=== PATIENT | female | born 1960 | race Caucasian/White ===

== ENCOUNTER 2017-08-06 05:00 | Emergency (ER) | payer SELFPAY | END 2017-08-06 05:10 | disposition left against medical advice (07) | LOC: ED 05:04 | DX: R11.10 Vomiting, unspecified (principal); Z53.21 Procedure and treatment not carried out due to patient leaving prior to being seen by health care provider ==

== ENCOUNTER 2019-03-17 17:13 | Emergency (ER) | payer SELFPAY ==
[~2019-03-17] VITALS: Ht 165.1 cm; Wt 65.0 kg
[2019-03-17 17:18] VITALS: BP 128/92
--- NOTE | 2019-03-17 18:05 | NUR ---
Patient/Caregiver given discharge instructions and they have confirmed that they understand the instructions. Patient ambulatory with steady gait. pt left with all personal belongings.
== END 2019-03-17 18:07 | disposition home or self-care (01) ==
LOC: ED 18:04
DX: N61.0 Mastitis without abscess (principal); F17.200 Nicotine dependence, unspecified, uncomplicated
CPT/HCPCS: 99283